=== PATIENT | female | born 2000 | race Caucasian/White ===

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

== ENCOUNTER 2024-08-04 13:52 | Emergency (ER) | payer OTHER ==
[~2024-08-04] VITALS: Ht 167.6 cm; Wt 53.8 kg
[~2024-08-04 13:52] MED LIST: BACTRIM DS TAB1 EACH PO; HYDROXYZINE HCL50 MG PO; ONDANSETRON ODT8 MG PO; REMERON15 MG PO
[2024-08-04] MEDS ORDERED: FAMOTIDINE 20 MG TAB PO ONE (18:45)
[2024-08-04] MEDS ORDERED: predniSONE 20 MG TAB PO ONE (18:45)
[2024-08-04] MEDS ORDERED: PREDNISONE20 MG PO (18:48)
[2024-08-04 18:55] VITALS: BP 112/60
== END 2024-08-04 18:55 | disposition home or self-care (01) ==
LOC: ED 13:52
DX: L50.9 Urticaria, unspecified (principal); F17.200 Nicotine dependence, unspecified, uncomplicated
CPT/HCPCS: 99282; J7512